=== PATIENT | female | born 1975 | race Caucasian/White ===

== ENCOUNTER → 2020-03-10 17:22 | Outpatient (CLI) | payer BC, SELFPAY ==
--- NOTE | ~2020-03-10 | MM_ITS ---
EXAMINATION: MM screening [facility] w shilpa HISTORY: Screening TECHNIQUE: Craniocaudal and mediolateral oblique 3-D tomosynthesis images were obtained and synthetic 2-D images were generated. CAD analysis was submitted and interpreted. COMPARISON: Comparison to multiple prior studies sequentially, with oldest reviewed study dated 05/11. BREAST PARENCHYMAL COMPOSITION: The breasts are heterogeneously dense, which may obscure small masses . FINDINGS: There is no evidence of suspicious mass, calcification, or architectural distortion to sugg est malignancy in either breast. There has been no suspicious interval change. IMPRESSION: 1. No mammographic evidence of malignancy. 2. Recommend routine screening mammography in one year. BI-RADS Category 1: Negative Reviewed, dictated and finalized at location A. TER CIVIL
== END ==
PROVIDERS: PCP Family Medicine; Visit Provider Obstetrics & Gynecology
DX: Z12.31 Encounter for screening mammogram for malignant neoplasm of breast (principal)
CPT/HCPCS: 77063; 77067

== ENCOUNTER → 2021-03-16 07:19 | Outpatient (CLI) | payer BC, SELFPAY ==
--- NOTE | ~2021-03-16 | MM_ITS ---
EXAMINATION: MM screening [facility] w shilpa HISTORY: Screening TECHNIQUE: Craniocaudal and mediolateral oblique 3-D tomosynthesis images were obtained and synthetic 2-D images were generated. CAD analysis was submitted and interpreted. COMPARISON: Comparison to multiple prior studies sequentially, with oldest reviewed study dated 05/11. BREAST PARENCHYMAL COMPOSITION: The breasts are heterogenously dense, which may obscure small masses. FINDINGS: There is no evidence of suspicious mass, calcification, or architectural distortion to sugg est malignancy in either breast. There has been no suspicious interval change. IMPRESSION: 1. No mammographic evidence of malignancy. 2. Recommend routine screening mammography in one year. BI-RADS Category 1: Negative Reviewed, dictated and finalized at location A. ET NETWORK ANALYST
== END ==
PROVIDERS: PCP Family Medicine; Visit Provider Obstetrics & Gynecology
DX: Z12.31 Encounter for screening mammogram for malignant neoplasm of breast (principal)
CPT/HCPCS: 77063; 77067

== ENCOUNTER 2022-01-10 09:26 | Outpatient (CLI) | payer BC, SELFPAY ==
[2022-01-10 09:56] LABS: Basophils Percent Auto 0.7 % (0.2-1.2); Eosinophils Absolute Auto 0.2 K/mm3 (0-0.3); Eosinophils Percent Auto 3.9 % (0-4.4); Hemoglobin 13.6 g/dL (12.0-15.0); Immature Granulocyte Absolute 0.01 K/mm3 (0.00-0.031); Immature Granulocyte Percent A 0.2 % (0-0.5); Lymphocytes Absolute Auto 0.98 K/mm3 (0.9-3.2); Lymphocytes Percent Auto 21.4 % (18.3-44.2); Mean Corpuscular HGB Conc 32.4 g/dl (32-36); Mean Corpuscular Hemoglobin 30.6 pg (26-34); Mean Corpuscular Volume 94.6 fl (80-100); Mean Platelet Volume 10.4 fl (7.4-10.4); Monocytes Absolute Auto 0.4 K/mm3 (0.1-0.6); Neutrophils Percent Auto 64.8 % (45.5-73.1); Platelet Count Result 261 k/mm3 (150-375); Red Blood Count 4.44 M/mm3 (4.2-5.4); Red Cell Distribution Width 13.4 % (11.5-14.5); White Blood Count 4.6 K/mm3 (4.5-10.0)
== END 2022-01-10 09:27 | disposition home or self-care (01) ==
LOC: ANHSURGERY 09:30
PROVIDERS: PCP Family Medicine; Visit Provider Obstetrics & Gynecology
DX: Z41.9 Encounter for procedure for purposes other than remedying health state, unspecified (principal)
CPT/HCPCS: 36415; 85025; 86850; 86900; 86901

== ENCOUNTER 2022-01-14 01:14 | Day surgery (SDC) | payer BC, SELFPAY ==
[2022-01-04 13:41] VITALS: BMI 22.2
--- NOTE | 2022-01-04 13:45 | SUR.PREOP ---
Report to the Outpatient Waiting Room, entrance under the green pavilion located off [facility], at time _0730 on date _01/14/22 . Planned Procedure Time: . Time changes happen often and if your time is changed the preop area will call you the afternoon before. - You and your visitor will be asked to self-screen and do not enter if you have any COVID symptoms. - We encourage only one visitor and NO visitors under age 16 are allowed at this time. Your visitor will receive communication by the phone number that is given day of service. - The patient visitor is requested to social distance or may leave the building when not with patient due to restrictions. - A mask is required within the hospital. Patients may have clear liquids (water, carbonated beverages, clear teas, apple juice) until 3 hours prior to surgery with a maximum of 20 ounces. - No food from midnight until time of surgery - Infants may have breast milk until 4 hours before surgery, formula 6 hours prior to surgery. - Children will be allowed to drink immediately following surgery. If applicable, please bring a bottle or sippy cup to assist with drinking. Juice, water, soda, and popsicles are readily available. For infants on formula, please bring formula the day of surgery. Pacifiers are allowed. Take the following medications with a SIP of water the morning of surgery: ___LEXAPRO,DOXYCLYCLINE Medications to discontinue per physician ___N/A Date to take last dose_N/A Please no make-up, nail peruvian, hairspray, perfume, deodorant, or body powder the day of surgery. No jewelry (including any body piercings) or valuables the day of surgery, leave them at home. Please take a shower or bath the night before, or the morning of, surgery with an antibacterial soap. Wear comfortable, loose fitting clothing. Children are encouraged to wear pajamas. - Jewelry must be removed prior to entering the operating room. Rings and piercings that are not removed may be cut off. - The hospital will not accept responsibility for valuables. - Please leave all valuables, including medications, at home the day of surgery. If you are going home after surgery, a licensed driver starting gate must drive you home. - NO public transportation without another adult. - We recommend that an adult stay with you for 24 hours following discharge. - We also recommend that you do not drive, make important decision, drink alcoholic beverages, or take any drugs that were not prescribed by your health care provider for at least 24 hours after your discharge time. For Pediatric surgeries, we recommend two adults accompany the child home. Follow any additional instructions given to you from your surgeon. If you or anyone in your household have experienced Covid symptoms in the past week, please notify your surgeon or the nurse liaison at the phone number below for possible testing. Telephone instructions given to __DAPHNE DINH and asked if any additional questions and then verbalized understanding. Patient advised to call surgeon office or pre surgery nurse liaison [phone] if any additional questions.
--- NOTE | 2022-01-12 11:27 | PM.IMHP ---
H&P: HPI History of Present Illness Date/Time: 01/12/22 11:27 Chief Complaint: Recurrent high-grade dysplasia Narrative: Is a 47-year-old female with a history of recurrent high-grade dysplasia admitted for robotic hysterectomy and bilateral salpingectomy. She has some pain and discomfort she understands this would make her permanently infertile risks and benefits reviewed including not exclusive of , aspiration, bleeding, transfusion, perforation injury to bowel, bladder, ureters, or other internal organs with need for laparotomy. She was given the ACOG handout entitled hysterectomy as well as the de Sandra handout. She had all questions answered and asked to proceed PMFSH Past Medical History Medical History HPV (human papilloma virus) anogenital infection Family History Family History Grandparent Diabetes mellitus Cervical cancer Grandparent Diabetes mellitus Other Family history of malignant neoplasm Social History Social History Smoking status: Never smoker Alcohol intake: current Drinks per week: 2 Spiritual care concerns: No Meds Home Medications and Allergies Home Medications Medication Instructions Recorded Confirmed Type doxycycline hyclate 100 mg tablet 50 mg PO DAILY 11/16/21 01/04/22 History norethindrone 1 mg-ethinyl tablet PO DAILY 11/16/21 11/16/21 History estradiol 10 mcg (24)-iron 10 mcg(2) tablet (Lo Loestrin Fe) escitalopram oxalate 10 mg tablet 10 mg PO DAILY #90 tabs 12/02/21 01/04/22 Rx (Lexapro) Allergies Allergy/AdvReac Type Severity Reaction Status Date / Time No Known Allergies Allergy Mild Verified 01/04/22 13:20 Exam Const: General: cooperative, healthy appearing and comfortable Nutritional Appearance: average body habitus Orientation/consciousness: oriented to person, oriented to place and oriented to time HENMT: Head: normal to inspection Neck: Neck: normal visual inspection Resp: Effort & Inspection: normal respiratory effort Cardio: Rate: regular rate Rhythm: regular rhythm Heart sounds: S1 normal heart sound present and S2 normal heart sound present GI: Inspection: normal to inspection : External Female Exam: normal external appearance Speculum Exam - Vagina: normal appearance of the vagina Speculum Exam - Cervix: normal appearance of the cervix Bimanual exam- vagina & uterus: enlarged Bimanual Exam- Adnexa, other: normal adnexae Assessment and Plan Assessment and plan (1) High grade squamous intraepithelial cervical dysplasia: Code(s): R87.613 - High grade squamous intraepithelial lesion on cytologic smear of cervix (HGSIL) Status: Acute Plan Robotic total vaginal hysterectomy and bilateral salpingectomy
--- NOTE | 2022-01-13 14:44 | P.PNAN_ITS ---
Anes - Initial Pre Proc Eval Procedure: Operation Date: 01/14/22 09:30 Proposed Procedures p Robotic Assisted Total Vaginal Hysterectomy with Bilateral Salpingectomy - Dave Callahan MD Date/Time: 01/13/22 14:44 Surgeon: Dave Callahan MD Pre Op Diagnosis: higrade epithelial, ESTEE 2 Patient Data Age: 47 Gender: F Height: 1.73 m Weight: 66.36 kg Allergies Allergy/AdvReac Type Severity Reaction Status Date / Time No Known Allergies Allergy Mild Verified 01/14/22 08:06 Home Medications Medication Instructions Recorded Confirmed Type doxycycline hyclate 100 mg tablet 50 mg PO DAILY 11/16/21 01/14/22 History norethindrone 1 mg-ethinyl 1 tablet PO DAILY 11/16/21 01/14/22 History estradiol 10 mcg (24)-iron 10 mcg(2) tablet (Lo Loestrin Fe) escitalopram oxalate 10 mg tablet 10 mg PO DAILY #90 tabs 12/02/21 01/14/22 Rx (Lexapro) hydrocodone 5 mg-acetaminophen 325 1 tablet PO Q4H PRN pain #30 tabs 01/14/22 Rx mg tablet Patient hx anesthesia problems: none Family hx anesthesia problems: none Results Review: All pre-operative results and documents have been reviewed as part of the pre- operative evaluation. [facility] Past Medical History Medical History (Updated 01/14/22 @ 06:16 by Dave Callahan MD) Anxiety High grade squamous intraepithelial cervical dysplasia HPV (human papilloma virus) anogenital infection Family History Family History Grandparent Diabetes mellitus Cervical cancer Grandparent Diabetes mellitus Other Family history of malignant neoplasm Social History Social History Smoking status: Never smoker Alcohol intake: current Drinks per week: 2 Living arrangements: with family Spiritual care concerns: No Anes - Eval Final PreProcedure Day of Procedure 01/13/22 14:44 Patient weight: normal Heart: regular rate and rhythm Lungs: clear to auscultation and normal air movement Airway: Mallampati scale class II Neurological: alert and oriented Last oral intake: >/= 8 hours ASA classification: II Emergent: no Anesthetic plan: proceed Anesthesia type and monitoring: general ETT Results Review: All pre-operative results and documents have been reviewed as part of the pre- operative evaluation. Informed Consent: The patient's anesthetic plan and its attendant risks and benefits were discussed with the patient/family/POA. Questions were solicited and answers provided to the satisfaction of the patient/family/POA.
[2022-01-14] VITALS (11 sets, daily range): BP systolic 121–134; BP diastolic 70–89; PULSE 62–83; RESP 12–20; TEMP 36.3–36.9; O2SAT 97–100
--- NOTE | 2022-01-14 06:15 | WPDHPUPDATE1 ---
History and Physical Update Update Date/Time: 01/14/22 06:15 History and Physical has been reviewed, including an updated exam of the patient. There are NO changes in the patient's condition. Risks, benefits, and alternatives have been discussed and questions answered. Patient agrees to proceed with procedure.
[2022-01-14] MEDS: ACETAMINOPHEN 500 MG TABLET 1000 MG PO (08:16)
[2022-01-14] MEDS: LACTATED RINGERS 1,000 ML 30 ML IV CONT ×2 (08:20→10:10)
[2022-01-14] MEDS: KETOROLAC 15 MG/ML VIAL (*BKC) IV PUSH (08:29)
[2022-01-14] MEDS: ceFAZolin 2 GM/D5W 50 ML 2 GM/50 ML BAG IVPB (09:00)
--- NOTE | 2022-01-14 09:57 | W.PM.PROC2 ---
Procedure Note - Detailed Date of Procedure 01/14/22 Pre-op Diagnosis higrade epithelial, ESTEE 2 Post-op Diagnosis Other (Uterine fibroids) Procedure Performed robotic total vaginal hysterectomy and bilateral salpingectomies Surgeon Dave Callahan MD Anesthesia General Indications this is a 47-year-old female with postcoital bleeding pelvic pain and recurrent high-grade dysplasia. Findings Uterine fibroids were seen on the uterus. Normal-appearing ovaries tubes pelvis. Description of Procedure Patient was prepped draped in normal sterile fashion placed in the dorsal lithotomy position. Under excellent general trach anesthesia weighted speculum placed in posterior fornix vagina. Anterior lip of cervix grasped with single-tooth tenaculum and the uterus sounded to 10cm. Serial dilatation with fragmented dilators performed followed by passes the 10. SHANTHI and the 3. Cold cup. Next the 16 Green[place]ic catheter was placed in bladder and a weighted speculum was removed and gloves were changed. Supraumbilical incision made Veress needle passed in the abdomen. Abdomen filled with CO2 gas [id number]. The 8mm trocar advanced under direct visualization assuring no injury. Patient placed in Trendelenburg and right left lateral quadrant Kenan incisions made. 8mm trocars advanced and the right left lateral quadrants under direct visualization assuring no injury. A right upper quadrant incision made the 8mm trocar advanced under direct visualization assuring no injury. The robot was docked. Attention was turned to the console. The left round ligament was clock grasped, burned, cut. Anteriorly a bladder flap was formed by sharply dissecting the peritoneum and reflecting the bladder caudally away from the cervix and uterus to the opposite round ligament was clamped, burned, cut. Next the left fallopian tube was sharply dissected away from the ovarian complex and left attached at its uterine origin. The right fallopian tube was lip likewise dissected away from the right ovary and the left attached to its origin is a carlos. The utero-ovarian ligament on the left was skeletonized conserving the left ovary, this was clamped, burned, cut and brought to level of previously cut round ligament. The right ovary was conserved by clamping burning and cutting the right utero-ovarian ligament and bringing this to the round ligament. The cardinal broad ligaments on the left were serially skeletonized clamped, burned, cut hugging the cervix and uterus until the uterine vessels could be seen on the left. These were individually clamped, burned, cut. Next the cardinal and broad ligaments were serially skeletonized on the right clamping burning and cutting until the uterine vessels could be seen on the right. These were individually clamped, burned, cut. Blanching the uterus was no the colpotomy incision was made in the uterus cervix and tubes removed through the vagina. Hemostasis was assured. The the vagina was closed with a continuous running 0V lock from lateral edge to lateral edge and back to the midline. Irrigation undertaken and all pedicles appeared clear. The robot was undocked after and gas removed from the abdomen. The trocars removed and the incisions closed with 4-0 Monocryl and glue. Patient was awakened went to recovery in satisfactory condition. All sponge, needle, instrument counts were correct. There were no immediate complications noted Estimated Blood Loss 25 Drains No Packing No Pathology Yes Complications No immediate complications Condition Stable Disposition PACU
[2022-01-14] MEDS: fentaNYL CITRATE INJ (*CRX) 100 MCG/2 ML VIAL 25 MCG IV PUSH ×4 (10:32→10:43)
[2022-01-14] MEDS: SIMETHICONE 80 MG TAB.CHEW PO ×2 (19:08→22:16)
[2022-01-14] MEDS: DOCUSATE SODIUM 100 MG CAPSULE PO (19:08)
[2022-01-14] MEDS: IBUPROFEN 600 MG TABLET PO (19:08)
[2022-01-14] MEDS: HYDROcodone/acetaminophen (*CRX) 10-325 MG TABLET 1 TAB PO ×2 (19:09→22:16)
[2022-01-15 00:50] VITALS: BP 130/85; PULSE 83; RESP 16; TEMP 37; O2SAT 99
[2022-01-15] MEDS: SIMETHICONE 80 MG TAB.CHEW PO ×3 (01:01→08:21)
[2022-01-15] MEDS: HYDROcodone/acetaminophen (*CRX) 10-325 MG TABLET 1 TAB PO ×2 (01:02→04:47)
[2022-01-15] MEDS: IBUPROFEN 600 MG TABLET PO ×2 (01:02→08:21)
[2022-01-15 05:31] LABS: Basophils Percent Auto 0.2 % (0.2-1.2); Eosinophils Percent Auto 0.3 % (0-4.4); Hematocrit 35.4 % (37.0-47.0); Hemoglobin 11.7 g/dL (12.0-15.0); Immature Granulocyte Absolute 0.04 K/mm3 (0.00-0.031); Immature Granulocyte Percent A 0.3 % (0-0.5); Lymphocytes Absolute Auto 0.96 K/mm3 (0.9-3.2); Lymphocytes Percent Auto 8.1 % (18.3-44.2); Mean Corpuscular HGB Conc 33.1 g/dl (32-36); Mean Corpuscular Hemoglobin 30.9 pg (26-34); Mean Corpuscular Volume 93.4 fl (80-100); Mean Platelet Volume 10.2 fl (7.4-10.4); Monocytes Absolute Auto 0.8 K/mm3 (0.1-0.6); Monocytes Percent Auto 6.6 % (2.6-8.5); Neutrophils Absolute Auto 10.1 K/mm3 (1.3-6.7); Neutrophils Percent Auto 84.5 % (45.5-73.1); Platelet Count Result 231 k/mm3 (150-375); Red Blood Count 3.79 M/mm3 (4.2-5.4); Red Cell Distribution Width 13.2 % (11.5-14.5); White Blood Count 11.9 K/mm3 (4.5-10.0)
--- NOTE | 2022-01-15 06:28 | P.DS_ITS ---
DS: Admitting Diagnosis Discharge Date 01/15/2022 Admitting Diagnosis enlarged uterus and pelvic pain DS: Discharge Diagnosis Discharge Diagnosis (1) Enlarged uterus: Code(s): N85.2 - Hypertrophy of uterus Status: Acute (2) Pelvic pain: Code(s): R10.2 - Pelvic and perineal pain Status: Acute DS: Summary Hospital Course Reason for hospitalization: patient was admitted for robotic total vaginal hysterectomy bilateral salpingectomy. Hospital Course: On 01/14/2022 the patient underwent robotic total vaginal hysterectomy and bilateral salpingectomy. Her hospital course unremarkable. She remained afebrile. She was up, voiding without difficulty, eating regular diet, ambulating, generally without complaints. Time Spent with Patient Time attestation: Total time spent providing and/or coordinating discharge services: DS: Data Data Completed and Pending Pending studies at discharge: Pending at discharge 01/14/22 09:42 Surgical [PTH] Routine Labs on day of discharge: Labs from last 24 hours 01/15/22 04:57 WBC 11.9 H RBC 3.79 L Hgb 11.7 L Hct 35.4 L MCV 93.4 MCH 30.9 MCHC 33.1 RDW 13.2 Plt Count 231 MPV 10.2 Immature Gran % (Auto) 0.3 Neut % (Auto) 84.5 H Lymph % (Auto) 8.1 L Whitfield % (Auto) 6.6 Eos % (Auto) 0.3 Baso % (Auto) 0.2 Lymph # (Auto) 0.96 Whitfield # (Auto) 0.8 H Eos # (Auto) 0.0 Baso # (Auto) 0.0 Abs Immat Gran (auto) 0.04 H Absolute Neuts (auto) 10.1 H Absolute Nucleated RBC 0.0 Nucleated RBC % 0.0 Discharge Plan Discharge Patient Disposition: Home, Self-Care Stand Alone Forms: General Discharge Instructions Follow-up/Referrals: Dave Moore MD [Physician] - Discharge Medications: New hydrocodone-acetaminophen 5-325 mg tablet 1 tablet PO Q4H PRN (Reason: pain) Qty: 30 0RF Continued Lo Loestrin Fe 1 mg-10 mcg (24)/10 mcg (2) tablet 1 tablet PO DAILY doxycycline hyclate 100 mg tablet 50 mg PO DAILY escitalopram oxalate [Lexapro] 10 mg tablet 10 mg PO DAILY Qty: 90 0RF
--- NOTE | 2022-01-15 06:31 | PM.GYNPNOP ---
[employer]VERTISING SAL[employer] ASSIST[employer] - A/P Postoperative Procedures: Procedures Operation Date: 01/14/22 09:30 Actual Procedure Side Surgeon p Robotic Assisted Total Vaginal Hysterectomy with Bilateral Salpingectomy Bilateral Dave Callahan MD Postoperative day: 1 Postoperative status: doing well Postoperative plan: routine post-op care, ambulate, advance diet and discharge Time Spent With Patient Time: Total time spent is greater than 50% in coordination of care (as documented) at patient's floor/unit and/or counseling patient: Time with patient: less than 15 minutes ADVERTISING SALES ASSISTANT- PN:Subj Post-Op Subjective Date/time seen: 01/15/22 06:31 Subjective: patient reports feeling better, patient has no complaints, patient desires discharge, pain is well controlled and patient is tolerating oral intake Exam Const: General: cooperative, healthy appearing and comfortable Nutritional Appearance: average body habitus Orientation/consciousness: oriented to person, oriented to place and oriented to time HENMT: Head: normal to inspection Resp: Effort & Inspection: normal respiratory effort GI: Inspection: normal to inspection and incision (cdi) Auscultation: normal bowel sounds ADVERTISING SALES ASSISTANT - PN: Obj Data Vital Signs Vital Signs: Vital Signs - 24 hr 01/14/22 07:47 01/14/22 10:10 01/14/22 10:25 Temperature 97.5 F L 98.5 F Pulse Rate 83 78 67 Respiratory Rate 20 14 12 Blood Pressure 132/89 134/81 121/82 Pulse Oximetry 100 100 100 Oxygen Delivery Room Air Simple Face Mask Simple Face Mask Oxygen Flow Rate 10 10 01/14/22 10:40 01/14/22 10:47 01/14/22 10:55 Temperature Pulse Rate 62 66 Respiratory Rate 12 14 Blood Pressure 126/76 125/70 Pulse Oximetry 100 98 97 Oxygen Delivery Simple Face Mask Room Air Room Air Oxygen Flow Rate 10 01/14/22 11:10 01/14/22 11:20 01/14/22 11:15 Temperature 97.3 F L Pulse Rate 71 69 69 Respiratory Rate 12 16 16 Blood Pressure 122/75 126/71 Pulse Oximetry 99 99 99 Oxygen Delivery Room Air Room Air Oxygen Flow Rate 01/14/22 16:00 01/14/22 19:09 01/15/22 00:50 Temperature 97.7 F 98.6 F Pulse Rate 69 80 83 Respiratory Rate 16 18 16 Blood Pressure 132/82 130/85 Pulse Oximetry 99 99 99 Oxygen Delivery Room Air Oxygen Flow Rate Intake/Output Intake/Output: Intake & Output 01/12/22 01/13/22 01/14/22 01/15/22 23:59 23:59 23:59 23:59 Intake Total 1100 1080 Output Total 300 850 Balance 800 230 Meds/Results Medications: Active Medications Generic Name Dose Route Start Last Admin Trade Name Freq PRN Reason Stop Dose Admin Hydrocodone Bitart/Acetaminophen 1 tab 01/14/22 11:11 Hydrocodone/Acetaminophen (*Crx) 5-325 Mg Tablet PO Q3H PRN Pain Rated 5 or Less Hydrocodone Bitart/Acetaminophen 1 tab 01/14/22 11:11 01/15/22 04:47 Hydrocodone/Acetaminophen (*Crx) 10-325 Mg Tablet PO 1 tab Q3H PRN Administration Pain Rated 6 or Greater Docusate Sodium 100 mg 01/14/22 17:00 01/14/22 19:08 Docusate Sodium 100 Mg Capsule PO 100 mg BID ELLIS Administration Enoxaparin Sodium 40 mg 01/15/22 09:00 Enoxaparin 40 Mg/0.4 Ml Syringe SUB-Q DAILY ELLIS Dextrose/Lactated Ringer's 1,000 mls @ 125 mls/hr 01/14/22 11:11 Dextrose 5%/Lactated Ringers IV CONT .Q8H ELLIS Ibuprofen 600 mg 01/14/22 11:11 01/15/22 01:02 Ibuprofen 600 Mg Tablet PO 600 mg Q6H PRN Administration Cramping Ketorolac Tromethamine 30 mg 01/14/22 11:11 Ketorolac 30 Mg/Ml Vial (*Bkc) IV PUSH 01/19/22 11:10 Q6H PRN Pain Rated 4-6 Naloxone HCl 0.1 mg 01/14/22 11:11 Naloxone Hcl 0.4 Mg/Ml Vial IV PUSH Q2M PRN Respiratory rate less than 10 Ondansetron HCl 4 mg 01/14/22 11:11 Ondansetron Inj 4 Mg/2 Ml Vial IV PUSH Q6H PRN Nausea And Vomiting Simethicone 80 mg 01/14/22 11:11 01/15/22 04:47 Simethicone 80 Mg Tab.Chew PO 80 mg Q2H PRN Administration Gas Labs CBC & Chem 7: 12/19
--- NOTE | 2022-01-15 06:32 | PM.GYNPNOP ---
[employer] - A/P Postoperative Procedures: Procedures Operation Date: 01/14/22 09:30 Actual Procedure Side Surgeon p Robotic Assisted Total Vaginal Hysterectomy with Bilateral Salpingectomy Bilateral Dave Callahan MD Postoperative day: 1 Postoperative status: doing well Postoperative plan: routine post-op care, ambulate, advance diet and discharge Time Spent With Patient Time: Total time spent is greater than 50% in coordination of care (as documented) at patient's floor/unit and/or counseling patient: Time with patient: less than 15 minutes [employer]- PN:Subj Post-Op Subjective Date/time seen: 01/15/22 06:32 Subjective: patient has no complaints, patient desires discharge, pain is well controlled and patient is tolerating oral intake Exam Const: General: cooperative, healthy appearing and comfortable Orientation/consciousness: oriented to person, oriented to place and oriented to time HENMT: Head: normal to inspection Resp: Effort & Inspection: normal respiratory effort GI: Inspection: normal to inspection and incision (cdi) [employer] - PN: Obj Data Vital Signs Vital Signs: Vital Signs - 24 hr 01/14/22 07:47 01/14/22 10:10 01/14/22 10:25 Temperature 97.5 F L 98.5 F Pulse Rate 83 78 67 Respiratory Rate 20 14 12 Blood Pressure 132/89 134/81 121/82 Pulse Oximetry 100 100 100 Oxygen Delivery Room Air Simple Face Mask Simple Face Mask Oxygen Flow Rate 10 10 01/14/22 10:40 01/14/22 10:47 01/14/22 10:55 Temperature Pulse Rate 62 66 Respiratory Rate 12 14 Blood Pressure 126/76 125/70 Pulse Oximetry 100 98 97 Oxygen Delivery Simple Face Mask Room Air Room Air Oxygen Flow Rate 10 01/14/22 11:10 01/14/22 11:20 01/14/22 11:15 Temperature 97.3 F L Pulse Rate 71 69 69 Respiratory Rate 12 16 16 Blood Pressure 122/75 126/71 Pulse Oximetry 99 99 99 Oxygen Delivery Room Air Room Air Oxygen Flow Rate 01/14/22 16:00 01/14/22 19:09 01/15/22 00:50 Temperature 97.7 F 98.6 F Pulse Rate 69 80 83 Respiratory Rate 16 18 16 Blood Pressure 132/82 130/85 Pulse Oximetry 99 99 99 Oxygen Delivery Room Air Oxygen Flow Rate Intake/Output Intake/Output: Intake & Output 01/12/22 01/13/22 01/14/22 01/15/22 23:59 23:59 23:59 23:59 Intake Total 1100 1080 Output Total 300 850 Balance 800 230 Meds/Results Medications: Active Medications Generic Name Dose Route Start Last Admin Trade Name Freq PRN Reason Stop Dose Admin Hydrocodone Bitart/Acetaminophen 1 tab 01/14/22 11:11 Hydrocodone/Acetaminophen (*Crx) 5-325 Mg Tablet PO Q3H PRN Pain Rated 5 or Less Hydrocodone Bitart/Acetaminophen 1 tab 01/14/22 11:11 01/15/22 04:47 Hydrocodone/Acetaminophen (*Crx) 10-325 Mg Tablet PO 1 tab Q3H PRN Administration Pain Rated 6 or Greater Docusate Sodium 100 mg 01/14/22 17:00 01/14/22 19:08 Docusate Sodium 100 Mg Capsule PO 100 mg BID ELLIS Administration Enoxaparin Sodium 40 mg 01/15/22 09:00 Enoxaparin 40 Mg/0.4 Ml Syringe SUB-Q DAILY [facility] Dextrose/Lactated Ringer's 1,000 mls @ 125 mls/hr 01/14/22 11:11 Dextrose 5%/Lactated Ringers IV CONT .Q8H ELLIS Ibuprofen 600 mg 01/14/22 11:11 01/15/22 01:02 Ibuprofen 600 Mg Tablet PO 600 mg Q6H PRN Administration Cramping Ketorolac Tromethamine 30 mg 01/14/22 11:11 Ketorolac 30 Mg/Ml Vial (*Bkc) IV PUSH 01/19/22 11:10 Q6H PRN Pain Rated 4-6 Naloxone HCl 0.1 mg 01/14/22 11:11 Naloxone Hcl 0.4 Mg/Ml Vial IV PUSH Q2M PRN Respiratory rate less than 10 Ondansetron HCl 4 mg 01/14/22 11:11 Ondansetron Inj 4 Mg/2 Ml Vial IV PUSH Q6H PRN Nausea And Vomiting Simethicone 80 mg 01/14/22 11:11 01/15/22 04:47 Simethicone 80 Mg Tab.Chew PO 80 mg Q2H PRN Administration Gas Labs CBC & Chem 7: 01/15/22 04:57 Labs: Laboratory Results - last 24 hr 01/15/22 04:57 WBC 11.9 H RBC 3.79 L
[2022-01-15] MEDS: HYDROcodone/acetaminophen (*CRX) 5-325 MG TABLET 1 TAB PO (08:20)
[2022-01-15] MEDS: ENOXAPARIN 40 MG/0.4 ML SYRINGE SUB-Q (08:21)
[2022-01-15] MEDS: DOCUSATE SODIUM 100 MG CAPSULE PO (08:21)
[2022-01-15 08:30] VITALS: BP 116/74; PULSE 71; RESP 14; TEMP 36.4; O2SAT 96
--- NOTE | 2022-01-15 12:16 | P.PNAN_ITS ---
Anes - Prog Note Post-Op Date/Time: 01/15/22 12:16 Cardiovascular status: normal Respiratory status: normal Airway patency: baseline Mental status: baseline Post-Op hydration status: normal Vital Signs: Last Vital Signs Temp 36.4 C 01/15/22 08:30 Pulse 71 01/15/22 08:30 Resp 14 01/15/22 08:30 BP 116/74 01/15/22 08:30 Pulse Ox 96 01/15/22 08:30 O2 Del Method Room Air 01/15/22 08:30 O2 Flow Rate 10 01/14/22 10:40 Pain Score (VAS): 04/29 I/O: Intake & Output 01/14/22 01/15/22 01/15/22 23:59 07:59 15:59 Intake Total 700 1080 Output Total 300 850 Balance 400 230 Laboratory Tests 01/15/22 04:57 01/15/22 04:57 WBC 11.9 H RBC 3.79 L Hgb 11.7 L Hct 35.4 L MCV 93.4 MCH 30.9 MCHC 33.1 RDW 13.2 Plt Count 231 MPV 10.2 Immature Gran % (Auto) 0.3 Neut % (Auto) 84.5 H Lymph % (Auto) 8.1 L [place] % (Auto) 6.6 Eos % (Auto) 0.3 Baso % (Auto) 0.2 Lymph # (Auto) 0.96 [place] # (Auto) 0.8 H Eos # (Auto) 0.0 Baso # (Auto) 0.0 Abs Immat Gran (auto) 0.04 H Absolute Neuts (auto) 10.1 H Absolute Nucleated RBC 0.0 Nucleated RBC % 0.0 Post-procedural complaints: none Patient Feedback: Patient satisfied with anesthetic care.
== END 2022-01-15 12:35 | disposition home or self-care (01) ==
LOC: ANHSURGERY 07:33 → ANHOB2 11:14
PROVIDERS: PCP Family Medicine; Visit Provider Obstetrics & Gynecology
PROC: (CPT 58552; principal; 2022-01-14 09:30)
DX: D06.9 Carcinoma in situ of cervix, unspecified (principal); D25.9 Leiomyoma of uterus, unspecified; R10.2 Pelvic and perineal pain; A63.0 Anogenital (venereal) warts
CPT/HCPCS: 58552; S2900; 36415; 85025; 88307; 99199; A9270; J0690; J1100; J1650; J1885; J2250; J2405; J2704; J3010; J7030; J7120

== ENCOUNTER 2022-02-26 11:38 | Emergency (ER) | payer BC, SELFPAY ==
--- NOTE | ~2022-02-26 | CT_ITS ---
EXAMINATION: CT brain wo con DATE: 02/26/2022 15:13 INDICATION: involuntary neck movements . TECHNIQUE: Computed tomography (CT) of the head was performed without intravenous contrast. The mA wa s adjusted according to patient size. Iterative reconstruction technique was employed. The dose-lengt h product was 605.33 mGy-cm. COMPARISON: None FINDINGS: No acute intracranial hemorrhage or extra-axial fluid collection. No hydrocephalus, mass, or herniation. No acute ischemic infarct. Unremarkable dural venous sinus attenuation. No acute osseous abnormality. The aerated spaces are clear. IMPRESSION: No acute intracranial process. Reviewed, dictated and finalized at location K. NEERING ADMINISTRATOR
[2022-02-26 11:45] VITALS: BP 121/85; PULSE 93; RESP 16; TEMP 36.9; O2SAT 100
--- NOTE | 2022-02-26 13:46 | ED.GENADULT ---
HPI - General Adult General Chief complaint: Unspecified Stated complaint: involuntary neck movements for 6 weeks Time Seen by Provider: 02/26/22 12:36 History of Present Illness HPI narrative: 47-year-old female presents to the emergency room for evaluation involuntary neck twitching that has progressively become more intense over the last 6 weeks. States the twitching began shortly after hysterectomy that was performed due to having precancerous findings. Reports the neck twitching pulls her head off to the left she is beginning to have right-sided neck pain that radiates into her clavicle. Denies any injury or trauma. States that she is seeing her OB recently who prescribed her Flexeril which did not change her symptoms. Patient also states that she abruptly discontinued Lexapro prior to her hysterectomy. Was seen at her PCPs office and was prescribed a low-dose of diazepam which has not had any effect on the improvement of her twitching. Patient denies any shortness of breath difficulty breathing. Denies any voice changes. Denies any visual or hearing changes, although she states that she is having problems with her vision simply because her neck is always twitching to the left. Denies headaches, head injury or trauma. No known exposure to dopamine receptor blocking agents. Denies any focal neuro deficits Related Data Home Medications Medication Instructions Recorded Confirmed cyclobenzaprine 10 mg tablet mg 02/26/22 Allergies Allergy/AdvReac Type Severity Reaction Status Date / Time No Known Allergies Allergy Mild Verified 02/26/22 11:59 Review of Systems Review of Systems: CONSTITUTIONAL: Denies fever, chills, or sweats. EYES: Denies visual changes, redness, or discharge. ENT: Denies rhinorrhea, congestion, sore throat, or otalgia. CARDIOVASCULAR: Denies chest pain, palpitations, or edema. RESPIRATORY: Denies cough or dyspnea. GASTROINTESTINAL: Denies abdominal pain, nausea, vomiting, or diarrhea. GENITOURINARY: Denies dysuria or hematuria. SKIN: Denies rash or itching. MUSCULOSKELETAL: Denies back pain, joint pain, or myalgia. NEUROLOGIC: Reports involuntary neck twitching PSYCHIATRIC: Denies anxiety or depression. [facility] Past Medical History Medical History Anxiety High grade squamous intraepithelial cervical dysplasia HPV (human papilloma virus) anogenital infection Family History Family History Grandparent Diabetes mellitus Cervical cancer Grandparent Diabetes mellitus Other Family history of malignant neoplasm Social History Social History Smoking status: Never smoker Alcohol intake: current Drinks per week: 2 Spiritual care concerns: No Exam Narrative: GENERAL: Well-appearing, well-nourished, no physical limitations, and in no acute distress. HEAD: Normocephalic, atraumatic. EYES: Conjunctivae normal, PERRLA and EOMI. NECK: Supple. No meningeal signs. No adenopathy or masses. No carotid bruits or JVD CHEST: Clear to auscultation. No respiratory distress. No wheezes rales or rhonchi. HEART: Regular rate and rhythm. No murmur heard. Normal peripheral pulses. ABDOMEN: Soft, nontender, nondistended, normal active bowel sounds. : Normal external male/female exam. BACK: No midline cervical tenderness, step-offs, bony abnormality; FROM EXTREMITIES: Normal range of motion. No edema. No clubbing or cyanosis SKIN: Warm, dry, no rash. No noted wounds NEURO: No focal deficits. Alert and oriented x3. MAEW. CN's II-XI intact bilaterally, normal gait intermittent cervical muscle contractions noted PSYCH: Cooperative. Anxious and tearful. Course Course Emergency Course: 1615: Consult with Dr. Lopez regarding case. She is willing to see the patient in her clinic this week. Vital Signs Vital signs: Vital
[2022-02-26 13:52] LABS: Basophils Absolute Auto 0.1 K/mm3 (0.0-0.1); Basophils Percent Auto 0.8 % (0.2-1.2); Eosinophils Absolute Auto 0.2 K/mm3 (0-0.3); Eosinophils Percent Auto 3.6 % (0-4.4); Hematocrit 41.6 % (37.0-47.0); Hemoglobin 13.6 g/dL (12.0-15.0); Immature Granulocyte Absolute 0.02 K/mm3 (0.00-0.031); Immature Granulocyte Percent A 0.3 % (0-0.5); Lymphocytes Percent Auto 17.2 % (18.3-44.2); Mean Corpuscular HGB Conc 32.7 g/dl (32-36); Mean Corpuscular Hemoglobin 30.9 pg (26-34); Mean Corpuscular Volume 94.5 fl (80-100); Mean Platelet Volume 10.3 fl (7.4-10.4); Monocytes Absolute Auto 0.6 K/mm3 (0.1-0.6); Monocytes Percent Auto 8.6 % (2.6-8.5); Neutrophils Absolute Auto 4.5 K/mm3 (1.3-6.7); Neutrophils Percent Auto 69.5 % (45.5-73.1); Platelet Count Result 262 k/mm3 (150-375); Red Cell Distribution Width 12.9 % (11.5-14.5); White Blood Count 6.4 K/mm3 (4.5-10.0)
[2022-02-26] MEDS: diazePAM INJ (*CRX) 10 MG/2 ML SYRINGE 5 MG IV PUSH (14:21)
[2022-02-26] MEDS: diphenhydrAMINE HCl INJ 50 MG/ML VIAL 25 MG IV PUSH (14:22)
[2022-02-26 14:24] LABS: Alanine Aminotransferase 32 U/L (6-35); Albumin Level 4.7 g/dL (3.5-5.1); Alkaline Phosphatase 64 U/L (38-126); Anion Gap 6 mmol/L (8-16); Aspartate Amino Transferase 27 U/L (14-36); Bilirubin,Total 0.4 mg/dL (0.2-1.3); Blood Urea Nitrogen 12 mg/dL (7-17); Calcium 9.4 mg/dL (8.4-10.2); Carbon Dioxide 27 mmol/L (22-30); Chloride 104 mmol/L (98-107); Estimated Glomerular Filt Rate > 60; Glucose 92 mg/dL (65-110); Potassium 4.7 mmol/L (3.4-5.0); Sodium 137 mmol/L (137-145)
[2022-02-26 14:30] LABS: Erythrocyte Sedimentation Rate 8 mm/hr (0-20)
[2022-02-26 16:40] VITALS: BP 137/87; PULSE 86; RESP 16; O2SAT 100
[2022-02-28 10:01] LABS: Rapid Plasma Reagin Non-Reactive (NonReactive)
== END 2022-02-26 16:45 | disposition home or self-care (01) ==
PROVIDERS: Emergency Provider Nurse Practitioner Family; PCP Family Medicine
DX: G24.3 Spasmodic torticollis (principal)
CPT/HCPCS: 36415; 70450; 80053; 85025; 85652; 86038; 86592; 96374; 96375; 99284; J1200; J3360

== ENCOUNTER 2022-09-30 08:14 | Emergency (ER) | payer BC, SELFPAY ==
[2022-09-30 08:20] VITALS: BP 112/84; PULSE 82; RESP 16; TEMP 36.9; O2SAT 100
--- NOTE | 2022-09-30 08:22 | ED.URI ---
HPI - URI/Sore Throat General Chief Complaint: Upper Respiratory Infection Stated Complaint: Sore Throat Source: patient and RN notes reviewed History of Present Illness HPI Narrative: 47 yo F presents to urgent care with complaints of a cough, sore throat with coughing, intermittent BRADLEY, and lethargy x 8 days. Pt states the cough is worse at nighttime. Pt denies any chest pain, SOB, congestion, ear pain, vomiting, or diarrhea. Pt sates her HAs are getting better. Pt has been taking NyQuil and ibuprofen at home. Related Data Home Medications Medication Instructions Recorded Confirmed benztropine 0.5 mg tablet 0.5 mg PO BID 04/28/22 09/30/22 Allergies Allergy/AdvReac Type Severity Reaction Status Date / Time No Known Allergies Allergy Mild Verified 04/28/22 07:57 Review of Systems Review of Systems: Pertinent positives and pertinent negatives per HPI. [facility] Past Medical History Medical History Anxiety High grade squamous intraepithelial cervical dysplasia HPV (human papilloma virus) anogenital infection Surgical History Surgical History History of partial hysterectomy 01/14/2022 Family History Family History Grandparent Diabetes mellitus Cervical cancer Grandparent Diabetes mellitus Other Family history of malignant neoplasm Social History Social History Smoking status: Former smoker Alcohol intake: current Drinks per week: 2 Substance use: never Lack of Transportation: YES Lack of Food: Never True Current Housing: I Have Housing Concerned About Future Housing: No Difficulty Paying Gas/Electric Bills: No Difficulty Paying for Meds: No Currently Unemployed: No Education: Master's Degree or Higher Difficulty w/ Childcare or Family Care: No Living arrangements: with family Spiritual care concerns: No Comments At the time of my signature, I reviewed and agree with the nursing past medical, surgical, social, and family history. There is no relevant family history pertinent to the patient complaint. Exam Narrative: GENERAL: This is a well-nourished, well-developed patient, in no apparent distress. HEAD: normocephalic, atraumatic. EYES: Sclera clear/white. Vision is grossly intact. EARS: External ears normal, auditory canals clear and without drainage, TMs normal without perforation. Hearing grossly intact. NOSE: External nose normal with no obvious nasal discharge, nares without redness, no rhinorrhea. THROAT: Mucous membranes moist, posterior pharynx clear. NECK: Neck supple, non-tender without lymphadenopathy, masses or thyromegaly. CARDIOVASCULAR: Regular rate and rhythm without murmurs, gallops, or rubs. RESPIRATORY: Clear to auscultation. Breath sounds equal bilaterally. No wheezes, rales, or rhonchi. GASTROINTESTINAL: Abdomen soft, non-tender, nondistended. Bowel sounds are active. No hepato-splenomegaly, or palpable masses. No guarding. SKIN: warm, intact with no suspicious lesions or rash, good texture and turgor. NEURO: awake, alert, and oriented to person, place and time. There were no obvious focal neurologic abnormalities. EXTREMITIES: No clubbing, cyanosis, or edema. No joint tenderness, effusion, or edema noted. BACK: Nontender without deformity or crepitus. No flank tenderness. Course Course Level of Care: Express Care Visit Vital Signs Vital signs: Vital Signs Temperature 98.4 F 09/30/22 08:20 Pulse Rate 82 09/30/22 08:20 Respiratory Rate 16 09/30/22 08:20 Blood Pressure 112/84 09/30/22 08:20 Pulse Oximetry 100 09/30/22 08:20 Oxygen Delivery Room Air 09/30/22 08:20 Temperature 98.4 F 09/30/22 08:20 Pulse Rate 82 09/30/22 08:20 Respiratory Rate 16 09/30/22 08:20 Blood P
== END 2022-09-30 08:43 | disposition home or self-care (01) ==
PROVIDERS: Emergency Provider Nurse Practitioner Family; PCP Family Medicine
DX: J40 Bronchitis, not specified as acute or chronic (principal); Z87.891 Personal history of nicotine dependence; F41.9 Anxiety disorder, unspecified
CPT/HCPCS: 99213; G0463

== ENCOUNTER → 2023-04-17 13:54 | Outpatient (CLI) | payer BC, SELFPAY ==
--- NOTE | ~2023-04-17 | XR_ITS ---
XR chest 2V DATE: 04/17/2023 14:12 INDICATION: Other specified symptoms and signs involving chest TECHNIQUE: 2 views COMPARISON: 06/18/2022 PA and lateral chest FINDINGS: Normal heart size. No hilar or mediastinal enlargement. No pulmonary infiltrate or consol idation, pulmonary vascular congestion or pleural effusion or pneumothorax. IMPRESSION: Negative Reviewed, dictated and finalized at location B. TING MACHINE OPERATOR IMPRESSION: Negative
== END ==
PROVIDERS: PCP Nurse Practitioner Adult Health; Visit Provider Nurse Practitioner Adult Health
DX: R09.89 Other specified symptoms and signs involving the circulatory and respiratory systems (principal)
CPT/HCPCS: 71046

== ENCOUNTER 2024-03-07 08:01 | Emergency (ER) | payer BC, SELFPAY ==
--- NOTE | 2024-03-07 08:16 | ED.URI ---
HPI - URI/Sore Throat General Chief Complaint: Upper Respiratory Infection Stated Complaint: throat Time Seen by Provider: 03/07/24 08:17 History of Present Illness HPI Narrative: 49 y/o female presented for c/o cough, sore throat, nasal congestion and headache. Onset 3 days. Endorses 'coughing fits' and losing sleep. States she has had similar symptoms after Botox injections in the neck for dystonia. Denies sob, wheezing, body aches, n/v/d/f/c. Taking advil. Related Data Home Medications ?Medication ?Instructions ?Recorded ?Confirmed ?Last Taken ?Type onabotulinumtoxinA 100 unit unit IM 03/01/24 Unknown History solution for injection (Botox) Allergies Allergy/AdvReac Type Severity Reaction Status Date / Time No Known Allergies Allergy Mild Verified 03/01/24 08:07 Review of Systems Review of Systems: CONSTITUTIONAL: Denies body aches, fever, chills, or sweats. EYES: Denies visual changes, redness, or discharge. ENT: Reports rhinorrhea, congestion, sore throat denies otalgia. CARDIOVASCULAR: Denies chest pain, palpitations, or edema. RESPIRATORY: reports coughDenies dyspnea. GASTROINTESTINAL: Denies abdominal pain, nausea, vomiting, or diarrhea. SKIN: Denies rash MUSCULOSKELETAL: Denies back pain, joint pain, or myalgia. NEUROLOGIC: reports headache PMFSH Past Medical History Medical History Acute effusion of right ear Respiratory crackles at both lung bases Anxiety High grade squamous intraepithelial cervical dysplasia HPV (human papilloma virus) anogenital infection Surgical History Surgical History History of partial hysterectomy 01/14/2022 Family History Family History Grandparent Diabetes mellitus Cervical cancer Grandparent Diabetes mellitus Other Family history of malignant neoplasm Social History Social History Smoking status: Former smoker Smoking end date: 03/20/94 Alcohol intake: current Drinks per week: 2 Substance use: never Lack of Transportation: YES Lack of Food: Never True Current Housing: I Have Housing Concerned About Future Housing: No Difficulty Paying Gas/Electric Bills: No Difficulty Paying for Meds: No Currently Unemployed: No Education: Master's Degree or Higher Difficulty w/ Childcare or Family Care: No Living arrangements: with family Spiritual care concerns: No Exam Narrative: GENERAL: mildly Ill-appearing, no acute distress. EYES: conjunctivae clear ENT: Mucous membranes moist. TMs pearly ricks with normal light reflex bilaterally; no tragal tenderness. Oropharynx erythematous without lesions. No drooling, no hoarseness, no trismus, uvula midline. No tripod positioning, hot potato voice, or soft palate swelling. NECK: Supple. No lymphadenopathy CHEST: Clear to auscultation, breath sounds equal. No respiratory distress, speaks in full sentences. HEART: Regular rate and rhythm. No murmur heard. SKIN: Warm, dry NEURO: Alert and oriented x3. Course Course Emergency Course: Patient is aware of diagnosis, understands and agrees to treatment plan. Anticipatory guidance given. Patient agrees to follow-up as directed and is aware of reasons to seek care at the emergency department. Portions of this record may have been created with voice recognition software Level of Care: Express Care Visit Vital Signs Vital signs: Vital Signs Temperature 99.3 F 03/07/24 08:17 Pulse Rate 75 03/07/24 08:17 Respiratory Rate 20 03/07/24 08:17 Blood Pressure 131/82 03/07/24 08:17 Pulse Oximetry 100 03/07/24 08:17 Oxygen Delivery Room Air 03/07/24 08:17 Temperature 99.3 F 03/07/24 08:17 Pulse Rate 75 03/07/24 08:17 Respiratory Rate 20 03/07/24 08:17 Blood Pressure 131/82 03/07/24 08:17 Pulse Oximetry 100 03/07/24 08:17 Oxygen Delivery Room Air 03/07/24 08:17 MDM - URI/Sore Throat MDM Narrative Medical decision making narrative: POS covid, neg flu, strep result reviewed with pt. Advise supportive treatments. Patient is appropriate for outpatient treatment and follow-up. Differential Diagnosis Differential diagnosis: Likely upper respiratory infection, viral infection and pharyngitis Discharge Plan Discharge Clinical Impression: COVID-19 Patient Disposition: Home, Self-Care Condition: Stable Instructions: COVID-19 (Coronavirus Disease 2019) (ED) Additional Instructions: Your rapid COVID test was positive today. The following updated recommendations have been made by the CDC and local Health Departments, regarding COVID-19: - When people get sick with a respiratory virus, they stay home and away from others. - Return to normal activities when, for at least 24 hours, symptoms are improving overall, and if a fever was present, it has been gone without use of a fever-reducing medication. - Once people resume normal activities, they are encouraged to take additional prevention strategies for the next 5 days to curb disease spread, such as taking more steps for venetian blind cleaner and repairer air, enhancing hygiene practices, wearing a well-fitting mask, keeping a distance from others, and/or getting tested for respiratory viruses. - Enhanced precautions are especially important to protect those most at risk for severe illness, including those over 65 and people with weakened immune systems. - follow-up with your employer for return to work guidelines and restrictions Rest, stay hydrated. Tylenol and ibuprofen every 8 hours as needed Flonase/nasal spray, Zyrtec, cough syrup cold/flu medications for symptoms as needed Follow up with your primary care provider, call to schedule an appointment. Go to the ER for worsening symptoms or concerns. Patient Language: Thai Prescriptions: No Action Botox 100 unit recon soln IM escitalopram oxalate [Lexapro] 20 mg tablet 20 mg PO DAILY Qty: 90 1RF Follow-up/Referrals: Saleem Flores MD [Primary Care Provider] - Time of Disposition: 08:50
[2024-03-07 08:17] VITALS: BP 131/82; PULSE 75; RESP 20; TEMP 37.4; O2SAT 100
[2024-03-07 08:47] LABS: EDCOVIDSCREEN Positive (Negative); EDINFLUASCREEN Negative (Negative); EDINFLUBSCREEN Negative (Negative)
[2024-03-07 08:47] LABS: EDSTREPNEGPOS1 Negative (Negative)
== END 2024-03-07 08:53 | disposition home or self-care (01) ==
PROVIDERS: Emergency Provider Nurse Practitioner Family; PCP Family Medicine
DX: U07.1 COVID-19 (principal); Z87.891 Personal history of nicotine dependence
CPT/HCPCS: 87081; 87426; 87804; 87880; 99213; G0463

== ENCOUNTER 2024-03-21 13:12 | Outpatient (CLI) | payer BC, SELFPAY ==
--- NOTE | ~2024-03-21 | US_ITS ---
Left posterior wrist ULTRASOUND Ordering provider: Jena Chance, PAC History: . R22.30 - Localized swelling, mass and lump, unspecified u... . Comparison: None. FINDINGS/impression: Multilocular Cystic mass is seen measuring 2.4 x 0.6 x 1.7 cm which may be a ketty glion cyst. Synovial cyst is not excluded. Clinical correlation and follow-up advised. Reviewed, dictated and finalized at location A. RT LOAD EXPEDITER
--- NOTE | ~2024-03-21 | XR_ITS ---
HISTORY: M25.811 - Other specified joint disorders, right shoulder COMPARISON: None TECHNIQUE: 3 views of the right shoulder were performed FINDINGS: No acute fracture. The glenohumeral and acromioclavicular joint space is maintained The visualized portion of the adjacent right lung is clear. The humeral head is well seated within the glenoid fossa. IMPRESSION: No acute fracture or anterior dislocation. Reviewed, dictated and finalized at location A. NG MACHINE OPERATOR
== END 2024-03-21 13:13 | disposition home or self-care (01) ==
LOC: MICIMG 13:13
PROVIDERS: PCP Family Medicine; Visit Provider Physician Assistant Medical
DX: M25.811 Other specified joint disorders, right shoulder (principal); M25.832 Other specified joint disorders, left wrist
CPT/HCPCS: 73030; 76882

== ENCOUNTER 2024-07-25 10:49 | Emergency (ER) | payer BC, SELFPAY ==
[2024-07-25 10:54] VITALS: BP 118/73; PULSE 66; RESP 14; TEMP 36.8; O2SAT 100
--- NOTE | 2024-07-25 10:59 | ED.URI ---
HPI - URI/Sore Throat General Chief Complaint: Upper Respiratory Infection Stated Complaint: Sore Throat Time Seen by Provider: 07/25/24 10:59 Source: patient, RN notes reviewed and old records reviewed Mode of arrival: ambulatory Limitations: no limitations History of Present Illness HPI Narrative: 49 year old female presents to [facility] with complaints of sudden onset of sore throat and fatigue on Monday 2 days ago. Patient reports that she also has slight cough and has been having cold chills with no known fevers. Patient reports that she has been taking Ibuprofen and also NyQuil for her symptoms. Patient report that it is painful to swallow. 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 last in May 2024. Patient is able to swallow without difficulty no drooling noted able to control secretions with no throat swelling. MD elicited complaint: cough and sore throat Onset (ago): day(s) (day 3 of symptoms) Consistency: constant Pain scale (0-10): 6 Able to tolerate fluids by mouth: Yes Exacerbating factors: swallowing Treatments prior to arrival: ibuprofen and other (NyQuil) Related Data Home Medications ?Medication ?Instructions ?Recorded ?Confirmed ?Last Taken ?Type onabotulinumtoxinA 100 unit unit IM 03/01/24 Unknown History solution for injection (Botox) estradiol 1 mg/gram (0.1 %) 07/25/24 Unknown History transdermal gel packet Allergies Allergy/AdvReac Type Severity Reaction Status Date / Time No Known Allergies Allergy Mild Verified 07/25/24 11:05 Review of Systems Review of Systems: CONSTITUTIONAL: reports malaise, states chills,no sweats, or known fever. EYES: Denies visual changes, redness, or discharge. ENT: Reports rhinorrhea, congestion, sinus pain,no otalgia and positive sore throat. CARDIOVASCULAR: Denies chest pain, palpitations, or edema. RESPIRATORY: Reports occasional cough.? Denies dyspnea. GASTROINTESTINAL: Denies abdominal pain, nausea, vomiting, diarrhea SKIN: Denies rash or itching. MUSCULOSKELETAL: Denies myalgia. NEUROLOGIC: Denies headache. All systems reviewed & are unremarkable except as noted in HPI and below PMFSH Past Medical History Medical History Dystonia cervical spine receives Botox injection right neck Acute effusion of right ear Respiratory crackles at both lung bases Anxiety High grade squamous intraepithelial cervical dysplasia HPV (human papilloma virus) anogenital infection Surgical History Surgical History (Updated 07/27/24 @ 16:01 by Che Sarah NP) H/O basal cell carcinoma excision History of partial hysterectomy 01/14/2022 Family History Family History Grandparent Diabetes mellitus Cervical cancer Grandparent Diabetes mellitus Other Family history of malignant neoplasm Social History Social History Smoking status: Former smoker Smoking end date: 03/20/94 Alcohol intake: current Drinks per week: 2 Substance use: never Lack of Transportation: YES Lack of Food: Never True Current Housing: I Have Housing Concerned About Future Housing: No Difficulty Paying Gas/Electric Bills: No Difficulty Paying for Meds: No Currently Unemployed: No Education: Master's Degree or Higher Difficulty w/ Childcare or Family Care: No Living arrangements: with family Spiritual care concerns: No Comments At time of signature, agree with nursing past medical, surgical, social and family history. There is no relevant family history pertinent to the presenting complaint Exam Narrative: GENERAL: Well-appearing, well-nourished, and in no acute distress. HEAD: Normocephalic EYES: PERRLA, conjunctivae clear ENT: Nares clear, turbinates edematous and erythematous, clear discharge. Mucous membranes moist. TM pearly ricks with dull light reflex bilaterally; no tragal tenderness. Oropharynx erythematous without lesions. Tonsils not enlarged and without exudate, no drooling, no hoarseness, no trismus, uvula midline.no difficulty swallowing, some post nasal discharge. NECK: Supple. No lymphadenopathy CHEST: Clear to auscultation, breath sounds equal. No wheezing, rhonchi, rales, or stridor. No respiratory distress, speaks in full sentences.occasional cough SAO2 100% on room air HEART: Regular rate and rhythm. No murmur heard. SKIN: Warm, dry, no rash. NEURO: Alert and oriented x3. PSYCH: Normal mood and affect Course Course Emergency Course: Patient is aware of diagnosis, understands and agrees to treatment plan.? Anticipatory guidance given.? Patient agrees to follow-up as directed and is aware of reasons to seek care at the emergency department. Portions of this record may have been created with voice recognition software Level of Care: Express Care Visit Vital Signs Vital signs: Vital Signs Temperature 36.8 C 07/25/24 10:54 Pulse Rate 66 07/25/24 10:54 Respiratory Rate 14 07/25/24 10:54 Blood Pressure 118/73 07/25/24 10:54 Pulse Oximetry 100 07/25/24 10:54 Oxygen Delivery Room Air 07/25/24 10:54 Temperature 36.8 C 07/25/24 10:54 Pulse Rate 66 07/25/24 10:54 Respiratory Rate 14 07/25/24 10:54 Blood Pressure 118/73 07/25/24 10:54 Pulse Oximetry 100 07/25/24 10:54 Oxygen Delivery Room Air 07/25/24 10:54 Reviewed MDM - URI/Sore Throat MDM Narrative Medical decision making narrative: Differential diagnosis considered: Subramanian virus, strep pharyngitis, allergic rhinitis, upper respiratory tract infection, sinusitis, rhinosinusitis, nasopharyngitis. viral pharyngitis, otitis media, otitis externa, pneumonia, bronchitis, viral cough syndrome, viral syndrome, and influenza.? Exam findings show no acute concerns or changes; patient is non-toxic appearing and is in no distress.? Patient is appropriate for outpatient treatment and follow-up. Differential Diagnosis Differential diagnosis: Likely upper respiratory infection, sinusitis, viral infection, pharyngitis and other (strep pharyngitis) Medical Records Attestation: I reviewed the patient's medical records. Lab Data Attestation: I reviewed the patient's lab results. Lab results narrative: strep screen negative, culture sent Labs: Lab Results 07/25/24 Range/Units 11:00 POC Grp A Strep Screen Negative (Negative) reviewed Critical Care Time Critical Care Time Critical Care Time: No Discharge Plan Discharge Clinical Impression: Upper respiratory infection Qualifiers: URI type: unspecified URI Qualified Code(s): J06.9 - Acute upper respiratory infection, unspecified Pharyngitis Qualifiers: Pharyngitis/tonsillitis etiology: unspecified etiology Qualified Code(s): J02.9 - Acute pharyngitis, unspecified Patient Disposition: Home Condition: Stable Instructions: Antibiotic Form, Pharyngitis (ED), Upper Respiratory Infection (ED) Additional Instructions: Increase fluids especially juices and water [id number] cough and cold medicine of your choice for your symptoms Zyrtec Claritin or Marlene daily Continue your inhaler/nebulizer as directed Steroids as directed--take with food heat to the face 20-30 minutes 4-6 times a day for pain Salt water gargles, throat lozenges or throat sprays as desired Your strep test today was negative. A throat culture will be sent to the laboratory for further testing. IF the test is positive, you will receive a phone call within 48 hours and an appropriate antibiotic will be initiated at that time. If your symptoms persist, change or worsen significantly before you can contact your personal physician then please, without delay, go to the emergency department for further evaluation. Follow-up with PCP in 7-10 days or sooner if needed Patient Language: Togolese Prescriptions: New methylprednisolone [Medrol (Gutierrez)] 4 mg tablets,dose pack See Rx Instructions .ROUTE .COMPLEX Qty: 21 0RF Rx Instructions: orally per package directions albuterol sulfate [Ventolin HFA] 90 mcg/actuation HFA aerosol inhaler 2 puff inhalation QID PRN (Reason: shortness of breath or wheezing) Qty: 6.7 0RF Rx Instructions: dispense what is covered on insurance Patient to use as needed No Action estradiol 1 mg/gram (0.1 %) gel in packet Botox 100 unit recon soln IM escitalopram oxalate [Lexapro] 20 mg tablet 20 mg PO DAILY Qty: 90 1RF Follow-up/Referrals: Saleem Flores MD [Primary Care Provider] - Time of Disposition: 11:33 Quality [place] Coma Scale Eyes: Open Verbal: Oriented and Alert Motor: Follows Commands De Borgia Coma Total Score: 15
--- OUTSIDE RECORDS SUMMARY | 2024-07-25 10:59 | XMS_ITS | Patient Health Record ---
Author Organization [facility] Address [address] [place] [address] Care Team Providers Care Graphics Production Specialist Name Role Phone Manish Awad Primary Care Provider Reason For Referral No Information Immunizations Vaccine Route Administration Date Status Comme nts COVID-19 Moderna Booster IM Intramuscular 01/28/2021 Administered COVID-19 Moderna 1ST IM Intramuscular 03/28/2020 Administered COVID-19 Moderna 1ST IM Intramuscular 04/25/2020 Administered EUA date 0. Screening reviewed and consent signed. Patient tolerated well. Plan Of Treatment No Information Insurance Providers Payer Name Payer Address Payer Phone Subscriber Number Group Number Insured Name Patient Relationship to Insured Coverage Start Date Coverage End Date [facility] [address] [place] [phone] [id number] Octavia Sapp Self - patient is the insured 1
--- OUTSIDE RECORDS SUMMARY | 2024-07-25 11:00 | XMS_ITS | Clinical Summary ---
Author Organization [facility] Address [address] [place] [address] Care Team Providers Care Last Waxer Name Role Phone Saleem Flores MD Primary Care Provider Source Comments [facility],non-owned Affiliates and Associated Physician Practices is amultiple site organization consisting of ambulatory clinics and hospital sitesin [place], [place], [place] and [place]. This disclosure is being madepursuant to the Care Everywhere program and may not contain all information available regarding this patient. Last updated 17.[facility] Allergies No known active allergies Medications * Be aware that medications may not be up to date on this document. Alwaysverify current medications with the patient. 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 Travel from Last 3 Months Social History Tobacco Use Types Packs/Day Years Used Date Smoking Tobacco: Never Smokeless Tobacco: Never Tobacco Cessation:Counseling Given: Not Answered Alcohol Use Standard Drinks/Week Comments Never 0 (1 standard drink = 0.6 oz pur e alcohol) Comments No Sex and Gender Information Value Date Recorded Sex Assigned at Not on file Legal Sex Female 2:07 PM CDT Gender Identity Not on file Sexual Orientation Not on file Last Filed Vital Signs Vital Sign Reading Time Taken Comments Blood Pressure 132/84 05/21/2024 11:12 AM GARAGE ATTENDANT Pulse 74 05/21/2024 11:12 AM GARAGE ATTENDANT Temperature 36.1 C (97 F) 08/17/2023 1:26 PM CDT Respiratory Rate - - Oxygen Saturation 99% 05/21/2024 11:12 AM GARAGE ATTENDANT Inhaled Oxygen Concentration - - Weight 68 kg (150 lb) 05/21/2024 11:12 AM GARAGE ATTENDANT Height 172.7 cm (5' 8 ) 02/20/2024 1:25 PM GARAGE ATTENDANT Body Mass Index 22.81 02/20/2024 1:25 PM GARAGE ATTENDANT Plan of Treatment Upcoming Encounters Date Type Department Care Team (Late st Contact Info) Description 08/27/2024 3:00 PM CDT Procedure visit [facility] - Neurology [address] [place] [phone] Simone Lobo MD [address] [place] [phone] 11/26/2024 11:00 AM CDT Procedure visit [facility] - Neurology [address] [place] [phone] Simone Lobo MD [address] [place] [phone] Health Maintenance Due Date Last Done Comments COLOGUARD (AGES 45-75) - COL ON CA SCREENING 1974 COLON MONITORING 1974 COLONOSCOPY - COLON CA SCREENING 1974 CT COLONOGRAPHY - COLON CA SCREENING 1974 Colorectal Cancer Screening 1974 FIT - COLON CA SCREENING 1974 FLEX SIG - COLON CA SCREENING 1974 LIPID TESTING 1974 MAMMOGRAM 1974 PAP SMEAR 1974 HIV SCREENING 1989 HEPATITIS C SCREENING 01/06/1992 DTAP/TDAP/TD VACCINES (1 - Tdap) 1993 HEPATITIS B VACCINE (1 of 3 - 19+ 3-dose series) 1993 COVID-19 VACCINE (4 - 2023-2 5 season) 2023 01/28/2021, 04/25/2020, 03/28/2020 PNEUMOCOCCAL VACCINE 50+ (1 of 1 - PCV) 01/11/2024 ZOSTER VACCINE (1 of 2) 01/11/2024 DEPRESSION SCREENING 03/20/2024 INFLUENZA VACCINE (Season Ended) 2024 HIB VACCINE Aged Out No longer eligi ble based on patient's age to complete this topic HPV VACCINE Aged Out No longer eligi ble based on patient's age to complete this topic MENINGOCOCCAL (Group B) VACCINE SHARED DECISION-MAKING Aged Out No longer eligible based on patient's age to complete this topic MENINGOCOCCAL GROUPS A/C/Y/W VACCINE Aged Out No longer eligible b ased on patient's age to complete this topic Procedures Procedure Name Priority Date/Time Associated Diagnosis Comments CT NDL EMG GDN CONJUNCT CHEMODNRVTJ Routine 05/21/2024 1:41 PM GARAGE ATTENDANT Spasmodic torticollis CT CHEMODENERV MUSC NECK DYSTON Routine 05/21/2024 1:41 PM GARAGE ATTENDANT Spasmodic torticollis from Last 3 Months Results * CT CHEMODENERV MUSC NECK DYSTON, CT NDL EMG GDN CONJUNCT CHEMODNRVTJ (05/21/2024 1:41 PM GARAGE ATTENDANT) Narrative Simone Lobo MD - 05/21/2024 1:41 PM GARAGE ATTENDANT Simone Lobo MD 05/21/2024 1:58 PM See procedure note for documentation. Modifier 50 for bilateral Simone Lobo MD PROCEDURE/MINOR SURGICAL ORDERAB LES Final Result from Last 3 Months Insurance ANTHEM Care Teams Last Waxer Relationship Specialty Start Date End Date Saleem Flores MD [address] [place] [address] PCP - General 11/08/17
--- OUTSIDE RECORDS SUMMARY | 2024-07-25 11:00 | XMS_ITS | Clinical Summary ---
Author Organization [facility] Address [address] [place] [address] Phone Care Team Providers Care Paper Coating Machine Operator Name Role Phone Saleem Flores MD Primary Care Provider [phone] Social History Tobacco Use Types Packs/Day Years Used Date Smoking Tobacco: Never Assessed Comments Unknown Sex and Gender Information Value Date Recorded Sex Assigned at Not on file Legal Sex Female 7:00 AM HOUSEKEEPER HEAD Gender Identity Not on file Sexual Orientation Not on file Plan of Treatment Health Maintenance Due Date Last Done Comments Hepatitis C Virus (HCV) Screening 1974 TdaP Immunization 1974 Hepatitis B Immunization (1 of 3 - 19+ 3-dose series) 1993 Pap Smear 1995 Cervical Cancer Screening (CCS) 01/11/2004 HPV/Cotest 01/11/2004 Discussion re Starting/Frequency of Mammograms 2014 Colonoscopy 2019 Colorectal Cancer Screening 2019 Influenza Immunization (#1) 2023 SARS-COV-2 Immunization ( season) 2023 01/28/2021, 04/25/2020, 03/28/2020 Cologuard 01/11/2024 Immunochemical Fecal Occult Blood 01/11/2024 Mammogram 01/11/2024 Pneumococcal Immunization (5 0+ years) (1 of 1 - PCV) 01/11/2024 Zoster Immunization (1 of 2) 01/11/2024 Respiratory Syncytial Virus (RSV) Immunization (Adult) (1 - 1-dose 75+ series) 2049 Meningococcal Immunization (ACWY) Aged Out No longer eligible b ased on patient's age to complete this topic Pneumococcal Immunization Combined Aged Out No longer eligible b ased on patient's age to complete this topic Rotavirus Immunization Aged Out No lo nger eligible based on patient's age to complete this topic Insurance [facility] Care Teams Paper Coating Machine Operator Relationship Specialty Start Date End Date Saleem Flores MD [address] [place] [address] PCP - General Family Medicine 03/23/18
--- OUTSIDE RECORDS SUMMARY | 2024-07-25 11:00 | XMS_ITS | Encounter Summary ---
Author Organization [facility] Address [address] [place] [address] Care Team Providers Care Fine Arts Packer Name Role Phone Saleem Flores MD Primary Care Provider [phone] Encounter Details Date Type Department Care Team (Late st Contact Info) Description 02/13/2023 Telephone [facility] Neurology [address] [place] [phone] Steven Graham MD Social History Tobacco Use Types Packs/Day Years Used Date Smoking Tobacco: Never Smokeless Tobacco: Never Alcohol Use Standard Drinks/Week Comments Never 0 (1 standard drink = 0.6 oz pur e alcohol) Comments No Sex and Gender Information Value Date Recorded Sex Assigned at Not on file Legal Sex Female 2:07 PM CDT Gender Identity Not on file Sexual Orientation Not on file documented as of this encounter Miscellaneous Notes * Telephone Encounter - Quentin Gillette MA - 02/13/2023 10:49 AM CST We received a call from this patient's [facility] pharmacy requesting a prior authorization for herBotox. The reference number for this is [id number] [facility] phone #: ALT SMOOTHER documented in this encounter Plan of Treatment Upcoming Encounters Date Type Department Care Team (Late Contact Info) Description 08/27/2024 3:00 PM CDT Procedure visit [facility] Neurology [address] [place] [phone] Simone Lobo MD [address] [place] [address] [address] [place] [address] 11/26/2024 11:00 AM CDT Procedure visit [facility] Neurology [address] [place] [phone], On License [place] [address] Simone Lobo MD [address] [place] [address] [address] [place] [address] documented as of this encounter Visit Diagnoses Not on filedocumented in this encounter Care Teams Fine Arts Packer Relationship Specialty Start Date End Date Saleem Flores MD [address] [place] [phone] PCP - General 11/08/17 documented as of this encounter
[2024-07-25 11:12] LABS: EDSTREPNEGPOS1 Negative (Negative)
== END 2024-07-25 11:35 | disposition home or self-care (01) ==
PROVIDERS: Emergency Provider Registered Nurse; PCP Family Medicine
DX: J06.9 Acute upper respiratory infection, unspecified (principal); J02.9 Acute pharyngitis, unspecified; F41.9 Anxiety disorder, unspecified; Z87.891 Personal history of nicotine dependence
CPT/HCPCS: 87081; 87880; 99213; G0463